=== PATIENT | female | born 1985 | race African-American/Black ===

== ENCOUNTER 2018-12-07 14:46 | Emergency (ER) | payer SELFPAY ==
--- NOTE | 2018-12-07 15:15 | EDM.PDOC ---
ED HPI GENERAL MEDICAL PROBLEM - General Chief Complaint: ENT Problem Stated Complaint: NECK AND BACK PAIN Time Seen by Provider: 12/07/18 15:05 Source of Information: Reports: Patient History Limitations: Reports: No Limitations - History of Present Illness INITIAL COMMENTS - FREE TEXT/NARRATIVE: 33-year-old female of -[place] descent presents to the ED with a very sore throat for the last 3 days. She appreciates plugged up ears particularly on the right side. She's aware of postnasal drip sinus congestion and then paroxysmal intermittent productive cough. This is aggravated her low back pain which flares up intermittently. She's had previous single rodding for scoliosis many years ago and gets intermittent low back pain. She feels the change in weather might be contributing a bit to her back pain as well. Onset: Gradual Onset Date: 12/03/18 Duration: Day(s):, Getting Worse Location: Reports: Face (Sore throat right ear occlusion), Neck, Chest ( Productive cough) Quality: Reports: Ache, Burning Severity: Moderate Improves with: Reports: None Worsens with: Reports: None Context: Reports: Sick Contact (Workplace). Denies: Activity, Exercise, Lifting , Trauma Associated Symptoms: Reports: Cough, cough w sputum, Fever/Chills, Loss of Appetite, Malaise, Other (Low back pain). 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 She gets intermittent low back pain), Other (See Below) (Patient has chronic scoliosis of her thoracic spine for which she had surgery with single sailaja placed) - Past Surgical History Neurological Surgical History: Reports: Scoliosis, Other (See Below) (Patient has had a single sailaja placed in her mid back from thoracic spine to lumbar spine any years ago for scoliosis.) Social & Family History - Living Situation & Occupation Living situation: Reports: Single Occupation: Employed ED ROS ENT - Review of Systems Review Of Systems: See Below Constitutional: Reports: Fever, Malaise, Weakness, Fatigue, Decreased Appetite HEENT: Reports: Rhinitis, Sinus Problem (Plugged up ears), Throat Pain, Other Respiratory: Reports: Shortness of Breath (Postnasal drip), Cough, Sputum Cardiovascular: Denies: Chest Pain, Blood Pressure Problem, Claudication, Dyspnea on Exertion, Edema, Lightheadedness, Orthopnea Endocrine: Reports: Fatigue GI/Abdominal: Reports: No Symptoms Musculoskeletal: Reports: Back Pain (Chronic back pain from scoliosis. Riding in the past intermittent problems with low back pain) Skin: Reports: No Symptoms ( and inflammation.) Neurological: Reports: No Symptoms Psychiatric: Reports: No Symptoms ED EXAM, ENT - Physical Exam Exam: See Below Exam Limited By: No Limitations General Appearance: Alert, WD/WN, No Apparent Distress, Other (Clinically the patient is febrile to touch. Nurses wrote a mature is 36.7. Pulse is 90 and sinus respiratory is 18. Sats are 100% on room air. BP is 136/90.) Eye Exam: Bilateral Eye: Normal Inspection Ears: Canal Material (The left ear canal is about 70% filled with cerumen.), TM Dullness (The right a membrane is lena and retracted with serous otitis media. The left TM is normal.) Nose: Nasal Swelling (Severe swelling of the superior medial terminus bilaterally with bilateral nasal polyps identified on exam worse on the right as compared to the left.) Mouth/Throat: Pharyngeal Erythema, Tonsillar Erythema (Mild pelvic bilaterally.) , Tonsillar Swelling (Heart pharyngeal erythema.). No: Hoarse Voice, Tonsillar Exudates ( Suspect both good size without any significant exudate.) Head: Atraumatic, Normocephalic Neck: Normal Inspection, Supple, Non-Tender, Full Range of Motion. No: Lymphadenopathy (L), Lymphadenopathy (R) Respiratory/Chest: No Respiratory Distress, Rhonchi. No: Wheezing Cardiovascular: Normal Peripheral Pulses, Regular Rate, Rhythm, No Edema, No Gallop, No Murmur (Scattered rhonchi upper lobes bilaterally. Lower lobes are clear.), No Rub Back: Decreased Range of Motion (Left lower back.), Muscle Spasm, Other (She has a well-healed midline scar from cervical spine 7 to lumbar 2. She has paraspinal muscle spasm on the left side from L1-L5 nothing on the right side.) Extremities: Normal Inspection, Normal Range of Motion, Non-Tender Neurological: Alert, Oriented, CN II-XII Intact, Normal Cognition Psychiatric: Normal Affect, Normal Mood Skin: Warm, Dry, Intact, Normal Color, No Rash Course - Vital Signs Last Recorded V/S: Last Vital Signs Temp 36.7 C 12/07/18 15:00 Pulse 90 12/07/18 15:00 Resp BP 136/90 12/07/18 15:00 Pulse Ox 100 12/07/18 15:00 - Radiology Interpretation Free Text/Narrative:: 33-year-old female presents to the ED for evaluation of upper respiratory tract infection. She has muffled hearing sore throat 3 days aware of sinus congestion and postnasal drip and paroxysmal intermittent minimally productive cough. The second problem is flareup of low back pain which first up intermittently. Patient has had previous scoliosis surgery with a single sailaja placed in the midline many years ago. She states for the most part she can be pain-free. Intermittently her low back pain will flare up. She reveals a perspective tract infection with a markedly retracted right eardrum high eustachian tube dysfunction right serous otitis media. The left TM is normal. Nose is very congested bilaterally from allergic rhinitis and early polyps bilaterally. Sinus congestion appreciated on palpation of the ethmoids and maxillary sinuses bilaterally. Minimal cervical adenopathy. Chest is relatively clear postage percussion. She on examination of low back she has marked paraspinal muscle spasm on the left side from L1-L5. She declined x-rays at this time. Plan treatment will be hydrocodone suspension as she states it's painful to swallow pills. 5 mils every 8 hours as needed for relief of cough and to help with her back pain. Antibiotic will be Doxycycline 100 mg twice daily for the next 10 days to clear up sinus infection post is drip and cough. The hydrocodone has some chlorpheniramine and at which will also act as a bit of a decongestant for her eustachian tubes. Departure - Departure Time of Disposition: 15:18 Disposition: Home, Self-Care 01 Condition: Fair Clinical Impression: Low back pain associated with a spinal disorder other than radiculopathy or spinal stenosis Upper respiratory tract infection Qualifiers: URI type: acute pharyngitis - Discharge Information *PRESCRIPTION DRUG MONITORING PROGRAM REVIEWED*: Not Applicable *COPY OF PRESCRIPTION DRUG MONITORING REPORT IN PATIENT CARMINA: Not Applicable Prescriptions: Doxycycline [Vibramycin] 100 mg PO BID #20 cap Hydrocodone/Chlorphen P-Stirex [Hydrocodone-Chlorpheniram Susp] 5 ml PO Q12H PRN #100 ml PRN Reason: cough relief Instructions: Musculoskeletal Pain, Cough, Adult Referrals: PCP,None [Primary Care Provider] - Forms: ED Department Discharge, ED Return to Work/School Form Additional Instructions: Evaluation in the emergency department today he guards to upper respiratory tract infection with a eustachian tube occlusion on the right side with retracted eardrum. And panic membrane is normal. Nasal congestion due to infection with postnasal drip. Evidence of marked inflammation of the back of your throat: Pharyngitis. Associated intermittent productive cough. Associated flare of low back pain. Treatment is to be hydrocodone suspension 5 mils every 8 hours as needed for cough relief. Antibiotic is to be toxic and 100 mg twice daily for the next 10 days to clear up sinus infection and sore throat and cough. They still use Tylenol or Motrin as needed for fever relief.
== END 2018-12-07 15:41 | disposition home or self-care (01) ==
LOC: JD.ED 14:46
DX: M53.9 Dorsopathy, unspecified (principal); J06.9 Acute upper respiratory infection, unspecified
CPT/HCPCS: 99283

== ENCOUNTER 2018-12-23 21:41 | Emergency (ER) | payer SELFPAY ==
--- NOTE | 2018-12-23 22:51 | EDM.PDOC ---
ED HPI GENERAL MEDICAL PROBLEM - General Chief Complaint: MDS COORDINATOR Problem Stated Complaint: VAGINAL ODOR Time Seen by Provider: 12/23/18 22:35 Source of Information: Reports: Patient History Limitations: Reports: No Limitations - History of Present Illness INITIAL COMMENTS - FREE TEXT/NARRATIVE: Ms. Alatorre is a very pleasant 33-year-old woman with no significant past medical history, who states that she developed a white fish-odor vaginal discharge about one week ago. She denies any vaginal itch. She states that she believes the infection is because she douched more than once about 2 weeks ago. No recent antibiotics. The patient states that she has had similar symptoms twice in the past, most recently about 6 months ago, and both times she was diagnosed with bacterial vaginosis. The patient states that she does not have an IUD. She states that she is not sexually active. The patient works as a traveling RN. Her home is in [place], [place]. - Related Data Allergies Allergy/AdvReac Type Severity Reaction Status Date / Time No Known Allergies Allergy Verified 12/07/18 15:01 Home Meds: Home Meds Doxycycline [Vibramycin] 100 mg PO BID #20 cap 12/07/18 [Rx] Hydrocodone/Chlorphen P-Stirex [Hydrocodone-Chlorpheniram Susp] 5 ml PO Q12H PRN #100 ml 12/07/18 [Rx] metroNIDAZOLE [Metrogel-Vaginal] 1 applic VG DAILY 5 Days #5 gel.w.appl [Rx] Past Medical History Musculoskeletal History: Reports: Back Pain, Chronic (Scoliosis) - Past Surgical History Neurological Surgical History: Reports: Thoracic Spine (spinal sailaja) Social & Family History - Tobacco Use Smoking Status *Q: Former Smoker Years of Tobacco use: 1 Packs/Tins Daily: 0.3 Month/Year Tobacco Last Used: Quit Sep 2018 - Caffeine Use Caffeine Use: Reports: Soda - Alcohol Use Alcohol Use History: Yes Alcohol Use Frequency: Socially - Recreational Drug Use Recreational Drug Use: No - Living Situation & Occupation Living situation: Reports: Single, Alone Occupation: Employed (research and development researcher) ED ROS GENERAL - Review of Systems Review Of Systems: ROS reveals no pertinent complaints other than HPI. ED EXAM, RENAL/ - Physical Exam Exam: See Below Exam Limited By: No Limitations General Appearance: Alert, WD/WN, No Apparent Distress Eye Exam: Bilateral Eye: EOMI, Normal Inspection Ears: Normal External Exam, Hearing Grossly Normal Nose: Normal Inspection Throat/Mouth: Normal Inspection, Normal Lips, Normal Voice, No Airway Compromise Head: Atraumatic, Normocephalic Neck: Normal Inspection, Full Range of Motion Respiratory/Chest: No Respiratory Distress, Lungs Clear, Normal Breath Sounds, No Accessory Muscle Use Cardiovascular: Normal Peripheral Pulses, Regular Rate, Rhythm, No Edema, No Gallop, No JVD, No Murmur, No Rub GI/Abdominal: Normal Bowel Sounds, Soft, Non-Tender (including suprapubically), No Organomegaly, No Distention, No Abnormal Bruit, No Mass (Female) Exam: Normal External Exam, Vaginal Discharge (Thick white, like thick milk. No clumps or adherence suggestive of Bruna vaginitis. The discharge is somewhat malodorous, but not fishy smelling. No vaginal inflammation or bleeding.). No: Cervical Discharge, Cervical Lesions, Cervix Motion Tenderness Rectal (Female) Exam: Deferred Back Exam: Normal Inspection Extremities: Normal Inspection, Normal Range of Motion, No Pedal Edema, Normal Capillary Refill Neurological: Alert, Oriented, Normal Cognition, No Motor/Sensory Deficits Psychiatric: Normal Affect Skin Exam: Warm, Dry, Intact, Normal Color, No Rash Course - Vital Signs Last Recorded V/S: Last Vital Signs Temp 36.6 C 12/23/18 22:07 Pulse 107 H 12/23/18 22:07 Resp 16 12/23/18 22:07 BP 116/71 12/23/18 22:07 Pulse Ox 98 12/23/18 22:07 - Orders/Labs/Meds Orders: Active Orders 24 hr Category Date Time Status CULTURE GENITAL [RM] Stat Lab 12/23/18 23:00 Received Labs: Laboratory Tests 12/23/18 Range/Units 23:00 C trachomatis DNA (PCR) Not detected N gonorrhoeae DNA (PCR) Not detected - Re-Assessments/Exams Free Text/Narrative Re-Assessment/Exam: 12/23/18 22:49 The patient's symptoms are concerning for either Bruna vaginitis or BV. She will be taken to room 7 for a pelvic exam. 12/23/18 23:01 A thick white milky discharge was found on pelvic exam. Vaginal culture, GC/ Chlamydia by PCR, and wet prep were obtained. 12/23/18 23:45 Test results discussed with the patient. Her wet prep found moderate clue cells , consistent with BV, with no trichomonads. Treatment consists of either metronidazole 500 mg po BID x 7 days or MetroGel 0.75% Qday x 5 days. The patient prefers the MetroGel. She will be given a prescription, since she is staying about an hour and a half out of town. We will contact her if the GC/ Chlamydia by PCR test returns positive. 12/24/18 02:42 The GC/Chlamydia by PCR has returned negative for both. Departure - Departure Time of Disposition: 23:47 Disposition: Home, Self-Care 01 Condition: Good Clinical Impression: Bacterial vaginosis - Discharge Information *PRESCRIPTION DRUG MONITORING PROGRAM REVIEWED*: Not Applicable *COPY OF PRESCRIPTION DRUG MONITORING REPORT IN PATIENT CARMINA: Not Applicable Prescriptions: metroNIDAZOLE [Metrogel-Vaginal] 1 applic VG DAILY 5 Days #5 gel.w.appl Instructions: Bacterial Vaginosis Referrals: PCP,Not In Area [Primary Care Provider] - Forms: ED Department Discharge Additional Instructions: You were seen in the emergency room for a white, fishy smelling vaginal discharge the past week. Workup in the ER included vaginal cultures, a wet prep, and a GC/Chlamydia test by PCR. The wet prep indicates that you are suffering from bacterial vaginosis (BV). A prescription for metronidazole gel has been provided to you. Apply 1 applicator full of MetroGel intravaginally every day, for 5 days, as prescribed. You will be contacted if the GC/Chlamydia test returns positive. If any other problems, please do not hesitate to return to the ER. - My Orders Last 24 Hours: My Active Orders 12/23/18 23:00 CULTURE GENITAL [RM] Stat - Assessment/Plan Last 24 Hours: My Active Orders 12/23/18 23:00 CULTURE GENITAL [RM] Stat
[2018-12-24 00:49] LABS: C. TRACHOMATIS BY PCR NOT DETECTED; N. GONORRHOEAE BY PCR NOT DETECTED
== END 2018-12-24 00:01 | disposition home or self-care (01) ==
LOC: JD.ED 21:41
DX: N76.0 Acute vaginitis (principal); B96.89 Other specified bacterial agents as the cause of diseases classified elsewhere; Z87.891 Personal history of nicotine dependence
CPT/HCPCS: 87070; 87210; 87491; 87591; 87808; 99283